=== PATIENT | female | born 1950 | race Caucasian/White ===

== ENCOUNTER 2020-02-07 10:17 | Outpatient (CLI) | payer MEDICARE, OTHER, SELFPAY ==
[2020-02-07 10:35] LABS: Hematocrit 45.8 % (37.0-47.0); Hemoglobin 15.2 g/dL (12.0-15.0); Mean Corpuscular HGB Conc 33.2 g/dl (32-36); Mean Corpuscular Volume 90.5 fl (80-100); Mean Platelet Volume 9.1 fl (7.4-10.4); Platelet Count Result 195 k/mm3 (150-375); Red Blood Count 5.06 M/mm3 (4.2-5.4); Red Cell Distribution Width 12.1 % (11.5-14.5)
[2020-02-07 10:47] LABS: Cholesterol 200 mg/dL (0-200); HDL Direct 38 mg/dL; Triglycerides 183 mg/dL (<150)
[2020-02-07 10:48] LABS: Alanine Aminotransferase 30 U/L (4-35); Albumin Level 4.3 g/dL (3.5-5.1); Alkaline Phosphatase 97 U/L (38-126); Aspartate Amino Transferase 29 U/L (14-36); Bilirubin,Total 0.7 mg/dL (0.2-1.3); Blood Urea Nitrogen 14 mg/dL (7-17); Calcium 9.3 mg/dL (8.4-10.2); Carbon Dioxide 27 mmol/L (22-30); Chloride 106 mmol/L (98-107); Estimated Glomerular Filt Rate > 60; Glucose 127 mg/dL (65-105); Magnesium 1.9 mg/dL (1.6-2.3); Sodium 139 mmol/L (137-145)
[2020-02-07 10:58] LABS: LDL Cholesterol Direct 128 mg/dL
[2020-02-07 12:09] LABS: Folic Acid > 20.0 ng/mL (2.76->20)
== END 2020-02-07 10:18 | disposition home or self-care (01) ==
PROVIDERS: PCP Internal Medicine; Visit Provider Internal Medicine
DX: R53.83 Other fatigue (principal); E78.00 Pure hypercholesterolemia, unspecified; I10 Essential (primary) hypertension
CPT/HCPCS: 36415; 80053; 80061; 82607; 82746; 83735; 84443; 85027

== ENCOUNTER 2020-09-02 07:55 | Outpatient (CLI) | payer MEDICARE, OTHER, SELFPAY ==
--- NOTE | ~2020-09-02 | MM_ITS ---
EXAMINATION: MM screening angela BI w nay HISTORY: Screening mammogram TECHNIQUE: Craniocaudal and mediolateral oblique 3-D tomosynthesis images were obtained and synthetic 2-D images were generated. CAD analysis was submitted and interpreted. COMPARISON: 08/24/2019, 07/18/2018, 07/14/2017 bilateral digital screening mammogram examinations BREAST PARENCHYMAL COMPOSITION: There are scattered areas of fibroglandular density. FINDINGS: There are bilateral scattered benign calcifications. There is a new 3 mm circumscribed opacity in the posterior lower outer left breast since 08/24/2019 ( craniocaudal Tomosynthesis image ). Diagnostic left mammogram is recommended, with ultrasound co rrelation. Otherwise there is no evidence of suspicious mass, calcification, or architectural distortion to sugg est malignancy in either breast. There has been no other suspicious interval change. IMPRESSION: 1. New 3 mm opacity in posterior lower outer left breast 2. Diagnostic left mammogram and left breast ultrasound examination are recommended. BI-RADS Category 0: Incomplete: Needs additional imaging evaluation. Reviewed, dictated and finalized at location A. ON SAWYER IMPRESSION: 1. New 3 mm opacity in posterior lower outer left breast 2. Diagnostic left mammogram and left breast ultrasound examination are recomme nded. BI-RADS Category 0: Incomplete: Needs additional imaging evaluation.
== END 2020-09-02 07:56 | disposition home or self-care (01) ==
PROVIDERS: PCP Internal Medicine; Visit Provider Internal Medicine
DX: Z12.31 Encounter for screening mammogram for malignant neoplasm of breast (principal); R92.8 Other abnormal and inconclusive findings on diagnostic imaging of breast
CPT/HCPCS: 77063; 77067

== ENCOUNTER 2020-09-30 13:46 | Outpatient (CLI) | payer MEDICARE, OTHER, SELFPAY ==
--- NOTE | ~2020-09-30 | MMUS_ITS ---
EXAMINATION: MM diagnostic mammo unilat LT, US breast LT limited HISTORY: Follow-up left breast asymmetry TECHNIQUE: Additional 3-D tomosynthesis images of the left breast were performed and synthetic 2-D im ages were generated. CAD analysis was submitted and interpreted. High resolution Limited left breast ultrasound was performed. COMPARISON: Comparison to multiple prior studies sequentially, with oldest reviewed study dated 06/25. BREAST PARENCHYMAL COMPOSITION: Breast composed of scattered areas of fibroglandular density FINDINGS: MAMMOGRAPHIC FINDINGS: . There are no suspicious masses, calcifications or architectural distortion in the left breast to kahn ggest malignancy. The focal asymmetry seen on prior examination compresses with spot ULTRASOUND: Limited left breast ultrasound is normal without focal solid or cystic mass. IMPRESSION: 1. No mammographic or sonographic evidence for malignancy in the left breast. 2. Routine yearly screening mammogram and regular clinical breast examination are recommended. BI-RADS Category 2: Benign finding(s). Reviewed, dictated and finalized at location A. D CANE SCALE CLERK IMPRESSION: 1. No mammographic or sonographic evidence for malignancy in the left breast. 2. Routine yearly screening mammogram and regular clinical breast examination a re recommended. BI-RADS Category 2: Benign finding(s).
== END 2020-09-30 13:47 | disposition home or self-care (01) ==
PROVIDERS: PCP Internal Medicine; Visit Provider Internal Medicine
DX: R92.8 Other abnormal and inconclusive findings on diagnostic imaging of breast (principal)
CPT/HCPCS: 76642; 77065

== ENCOUNTER 2020-11-21 09:19 | Outpatient (CLI) | payer MEDICARE, OTHER, SELFPAY ==
[2020-11-21 09:49] LABS: Basophils Percent Auto 0.4 % (0.2-1.2); Eosinophils Percent Auto 0.6 % (0-4.4); Hematocrit 46.8 % (37.0-47.0); Hemoglobin 15.7 g/dL (12.0-15.0); Immature Granulocyte Absolute 0.03 K/mm3 (0.00-0.031); Immature Granulocyte Percent A 0.4 % (0-0.5); Lymphocytes Absolute Auto 2.22 K/mm3 (0.9-3.2); Lymphocytes Percent Auto 31.4 % (18.3-44.2); Mean Corpuscular HGB Conc 33.5 g/dl (32-36); Mean Corpuscular Hemoglobin 29.3 pg (26-34); Mean Corpuscular Volume 87.3 fl (80-100); Monocytes Absolute Auto 0.4 K/mm3 (0.1-0.6); Monocytes Percent Auto 5.4 % (2.6-8.5); Neutrophils Absolute Auto 4.4 K/mm3 (1.3-6.7); Neutrophils Percent Auto 61.8 % (45.5-73.1); Platelet Count Result 193 k/mm3 (150-375); Red Blood Count 5.36 M/mm3 (4.2-5.4); Red Cell Distribution Width 12.3 % (11.5-14.5); White Blood Count 7.1 K/mm3 (4.5-10.0)
[2020-11-21 09:56] LABS: Alanine Aminotransferase 55 U/L (4-35); Albumin Level 4.2 g/dL (3.5-5.1); Alkaline Phosphatase 90 U/L (38-126); Anion Gap 7 mmol/L (8-16); Aspartate Amino Transferase 49 U/L (14-36); Bilirubin,Total 0.8 mg/dL (0.2-1.3); Blood Urea Nitrogen 16 mg/dL (7-17); Calcium 9.7 mg/dL (8.4-10.2); Carbon Dioxide 29 mmol/L (22-30); Chloride 104 mmol/L (98-107); Cholesterol 183 mg/dL (0-200); Estimated Glomerular Filt Rate > 60; Glucose 169 mg/dL (65-105); HDL Direct 40 mg/dL; Sodium 140 mmol/L (137-145); Triglycerides 195 mg/dL (<150)
[2020-11-21 10:07] LABS: Hemoglobin A1C 6.3 % (<5.7); LDL Cholesterol Direct 115 mg/dL
[2020-11-21 10:45] LABS: Vitamin D 25 Hydroxy 31.7 ng/mL
[2020-11-21 11:03] LABS: Folic Acid > 20.0 ng/mL (2.76->20)
== END 2020-11-21 09:20 | disposition home or self-care (01) ==
PROVIDERS: PCP Internal Medicine; Visit Provider Internal Medicine
DX: R53.83 Other fatigue (principal); I10 Essential (primary) hypertension; E53.8 Deficiency of other specified B group vitamins; E78.5 Hyperlipidemia, unspecified; E55.9 Vitamin D deficiency, unspecified; R73.9 Hyperglycemia, unspecified
CPT/HCPCS: 36415; 80053; 80061; 82306; 82607; 82746; 83036; 84443; 85025

== ENCOUNTER 2020-11-25 11:07 | Outpatient (NON) | payer MEDICARE, OTHER, SELFPAY ==
[2020-11-28 09:12] LABS: Metanephrine, Total Urine 462 mcg/24 h (224-832); Metanephrine, Urine 103 mcg/24 h (90-315); Normetanephrine, Urine 359 mcg/24 h (122-676)
== END 2020-11-25 11:08 ==
PROVIDERS: PCP Internal Medicine; Visit Provider Internal Medicine
DX: I10 Essential (primary) hypertension (principal)
CPT/HCPCS: 83835

== ENCOUNTER 2021-01-14 11:25 | Outpatient (CLI) | payer MEDICARE, OTHER, SELFPAY | END 2021-01-14 11:26 | disposition home or self-care (01) | LOC: ANHCOVIDVC 11:25 | PROVIDERS: PCP Internal Medicine | DX: Z23 Encounter for immunization (principal) | CPT/HCPCS: 0001A; 91300 ==

== ENCOUNTER 2021-02-04 11:28 | Outpatient (CLI) | payer MEDICARE, OTHER, SELFPAY | END 2021-02-04 11:29 | disposition home or self-care (01) | LOC: ANHCOVIDVC 11:28 | PROVIDERS: PCP Internal Medicine | DX: Z23 Encounter for immunization (principal) | CPT/HCPCS: 0002A; 91300 ==

== ENCOUNTER 2021-05-16 09:50 | Outpatient (CLI) | payer MEDICARE, OTHER, SELFPAY ==
[2021-05-16 10:53] LABS: Basophils Absolute Auto 0.1 K/mm3 (0.0-0.1); Basophils Percent Auto 0.6 % (0.2-1.2); Eosinophils Absolute Auto 0.1 K/mm3 (0-0.3); Eosinophils Percent Auto 0.9 % (0-4.4); Hematocrit 48.3 % (37.0-47.0); Hemoglobin 15.6 g/dL (12.0-15.0); Immature Granulocyte Absolute 0.04 K/mm3 (0.00-0.031); Immature Granulocyte Percent A 0.5 % (0-0.5); Lymphocytes Percent Auto 30.9 % (18.3-44.2); Mean Corpuscular HGB Conc 32.3 g/dl (32-36); Mean Corpuscular Hemoglobin 29.2 pg (26-34); Mean Corpuscular Volume 90.3 fl (80-100); Mean Platelet Volume 8.9 fl (7.4-10.4); Monocytes Absolute Auto 0.4 K/mm3 (0.1-0.6); Neutrophils Absolute Auto 4.8 K/mm3 (1.3-6.7); Neutrophils Percent Auto 62.1 % (45.5-73.1); Platelet Count Result 207 k/mm3 (150-375); Red Blood Count 5.35 M/mm3 (4.2-5.4); Red Cell Distribution Width 12.2 % (11.5-14.5); White Blood Count 7.8 K/mm3 (4.5-10.0)
[2021-05-16 11:11] LABS: Alanine Aminotransferase 30 U/L (4-35); Albumin Level 4.2 g/dL (3.5-5.1); Alkaline Phosphatase 106 U/L (38-126); Anion Gap 7 mmol/L (8-16); Aspartate Amino Transferase 32 U/L (14-36); Bilirubin,Total 0.7 mg/dL (0.2-1.3); Blood Urea Nitrogen 15 mg/dL (7-17); Calcium 10.1 mg/dL (8.4-10.2); Carbon Dioxide 27 mmol/L (22-30); Chloride 106 mmol/L (98-107); Cholesterol 202 mg/dL (0-200); Estimated Glomerular Filt Rate > 60; Glucose 147 mg/dL (65-110); HDL Direct 37 mg/dL; Potassium 4.2 mmol/L (3.4-5.0); Sodium 140 mmol/L (137-145); Triglycerides 232 mg/dL (<150)
[2021-05-16 11:22] LABS: LDL Cholesterol Direct 105 mg/dL
[2021-05-16 11:46] LABS: Vitamin D 25 Hydroxy 51.1 ng/mL
[2021-05-16 12:19] LABS: Folic Acid 9.8 ng/mL (2.76->20)
[2021-05-16 12:23] LABS: Hemoglobin A1C 6.6 % (<5.7)
== END 2021-05-16 09:51 | disposition home or self-care (01) ==
PROVIDERS: PCP Internal Medicine; Visit Provider Internal Medicine
DX: R73.9 Hyperglycemia, unspecified (principal); E78.5 Hyperlipidemia, unspecified; E55.9 Vitamin D deficiency, unspecified; E53.8 Deficiency of other specified B group vitamins; R53.83 Other fatigue
CPT/HCPCS: 36415; 80053; 80061; 82306; 82607; 82746; 83036; 84443; 85025

== ENCOUNTER 2021-09-19 15:05 | Outpatient (CLI) | payer MEDICARE, OTHER, SELFPAY ==
--- NOTE | ~2021-09-19 | US_ITS ---
EXAMINATION: US thyroid EXAM DATE: 09/19/2021 15:34 INDICATION: E04.1 - Nontoxic single thyroid nodule. TECHNIQUE: Multiple grayscale and Doppler images of the thyroid were obtained (by a technologist who performed the scan) and subsequently reviewed. Individual nodules and recommendations may be reporte d in accordance with TI-RADS system as designated by the 2017 ACR White Paper TI-RADS committee. The re is no prior study for comparison. FINDINGS: The right thyroid lobe measures 4.3 x 1.8 x 1.6 cm, the left measuring 4.1 x 1.4 x 1.2 cm. Mildly het erogeneous thyroid parenchyma with several small right thyroid lobe nodules. Largest solid nodule is in the right thyroid lobe measuring 1.1 x 1.1 x 0.9 cm , solid (2 points), hy poechoic (2 points), wider than tall, smooth well defined margin, without echogenic foci, category TR 4 for this nodule. IMPRESSION: Mildly enlarged right thyroid lobe with several nodules; recommend one-year follow-up ult rasound. Reviewed, dictated and finalized at location B. CITING FREIGHT AGENT IMPRESSION: Mildly enlarged right thyroid lobe with several nodules; recommend one-year follow-up ultrasound.
== END 2021-09-19 15:06 | disposition home or self-care (01) ==
LOC: ANHIMG 15:10
PROVIDERS: PCP Internal Medicine; Visit Provider Internal Medicine
DX: E04.1 Nontoxic single thyroid nodule (principal)
CPT/HCPCS: 76536

== ENCOUNTER 2021-09-29 08:33 | Outpatient (CLI) | payer MEDICARE, OTHER, SELFPAY ==
--- NOTE | ~2021-09-29 | MM_ITS ---
EXAMINATION: MM screening angela BI w nay HISTORY: Screening TECHNIQUE: Craniocaudal and mediolateral oblique 3-D tomosynthesis images were obtained and synthetic 2-D images were generated. CAD analysis was submitted and interpreted. COMPARISON: Comparison to multiple prior studies sequentially, with oldest reviewed study dated 07/03. BREAST PARENCHYMAL COMPOSITION: Breast composed of scattered areas of fibroglandular density FINDINGS: There is no evidence of suspicious mass, calcification, or architectural distortion to sugg est malignancy in either breast. There has been no suspicious interval change. IMPRESSION: 1. No mammographic evidence of malignancy. 2. Recommend routine screening mammography in one year. BI-RADS Category 1: Negative Reviewed, dictated and finalized at location A. GER PARTY
== END 2021-09-29 08:34 | disposition home or self-care (01) ==
LOC: ANHIMG 08:37
PROVIDERS: PCP Internal Medicine; Visit Provider Internal Medicine
DX: Z12.31 Encounter for screening mammogram for malignant neoplasm of breast (principal)
CPT/HCPCS: 77063; 77067

== ENCOUNTER 2021-12-04 11:12 | Outpatient (CLI) | payer MEDICARE, OTHER, SELFPAY ==
[2021-12-04 11:50] LABS: Basophils Percent Auto 0.6 % (0.2-1.2); Eosinophils Percent Auto 0.6 % (0-4.4); Hematocrit 43.7 % (37.0-47.0); Hemoglobin 14.1 g/dL (12.0-15.0); Immature Granulocyte Absolute 0.02 K/mm3 (0.00-0.031); Immature Granulocyte Percent A 0.3 % (0-0.5); Lymphocytes Absolute Auto 2.31 K/mm3 (0.9-3.2); Lymphocytes Percent Auto 37.1 % (18.3-44.2); Mean Corpuscular HGB Conc 32.3 g/dl (32-36); Mean Corpuscular Hemoglobin 28.8 pg (26-34); Mean Corpuscular Volume 89.4 fl (80-100); Mean Platelet Volume 9.4 fl (7.4-10.4); Monocytes Absolute Auto 0.4 K/mm3 (0.1-0.6); Monocytes Percent Auto 5.6 % (2.6-8.5); Neutrophils Absolute Auto 3.5 K/mm3 (1.3-6.7); Neutrophils Percent Auto 55.8 % (45.5-73.1); Platelet Count Result 161 k/mm3 (150-375); Red Blood Count 4.89 M/mm3 (4.2-5.4); Red Cell Distribution Width 12.8 % (11.5-14.5); White Blood Count 6.2 K/mm3 (4.5-10.0)
[2021-12-04 12:15] LABS: Alanine Aminotransferase 30 U/L (4-35); Albumin Level 4.1 g/dL (3.5-5.1); Alkaline Phosphatase 108 U/L (38-126); Anion Gap 6 mmol/L (8-16); Aspartate Amino Transferase 29 U/L (14-36); Bilirubin,Total 0.7 mg/dL (0.2-1.3); Blood Urea Nitrogen 12 mg/dL (7-17); Calcium 9.3 mg/dL (8.4-10.2); Carbon Dioxide 29 mmol/L (22-30); Chloride 105 mmol/L (98-107); Cholesterol 196 mg/dL (0-200); Estimated Glomerular Filt Rate > 60; Glucose 139 mg/dL (65-110); HDL Direct 35 mg/dL; Lactate Dehydrogenase 456 U/L (313-618); Potassium 4.4 mmol/L (3.4-5.0); Sodium 140 mmol/L (137-145); Triglycerides 245 mg/dL (<150)
[2021-12-04 12:25] LABS: LDL Cholesterol Direct 124 mg/dL
[2021-12-04 12:28] LABS: Hemoglobin A1C 6.5 % (<5.7)
[2021-12-04 13:26] LABS: Folic Acid > 20.0 ng/mL (2.76->20)
== END 2021-12-04 11:13 | disposition home or self-care (01) ==
PROVIDERS: PCP Internal Medicine; Visit Provider Internal Medicine
DX: D75.1 Secondary polycythemia (principal); R73.9 Hyperglycemia, unspecified; E78.5 Hyperlipidemia, unspecified; E53.8 Deficiency of other specified B group vitamins
CPT/HCPCS: 36415; 80053; 80061; 82607; 82746; 83036; 83615; 85025

== ENCOUNTER → 2022-04-17 02:19 | Outpatient (CLI) | payer MEDICARE, OTHER, SELFPAY ==
[2022-04-17 12:37] LABS: Influenza A QL RT-PCR Negative (Negative); Influenza B QL RT-PCR Negative (Negative); SARS-CoV-2 RNA PCR Negative
== END ==
PROVIDERS: PCP Internal Medicine; Visit Provider Internal Medicine
DX: R68.89 Other general symptoms and signs (principal); Z20.822 Contact with and (suspected) exposure to COVID-19
CPT/HCPCS: 87502; C9803; U0003; U0005

== ENCOUNTER 2022-11-18 12:31 | Outpatient (CLI) | payer MEDICARE, OTHER, SELFPAY ==
--- NOTE | ~2022-11-18 | MM_ITS ---
EXAMINATION: MM screening angela BI w nay HISTORY: Screening mammogram TECHNIQUE: Craniocaudal and mediolateral oblique 3-D tomosynthesis images were obtained and synthetic 2-D images were generated. CAD analysis was submitted and interpreted. COMPARISON: 09/29/2021 bilateral screening mammogram 09/30/2020 diagnostic left mammogram and limited left breast ultrasound 09/02/2020, 08/24/2019 bilateral screening mammogram examinations BREAST PARENCHYMAL COMPOSITION: There are scattered areas of fibroglandular density. FINDINGS: Scattered bilateral benign calcifications. Stable circumscribed low-density approximately 4 .7 mm opacity in the outer mid to lower right breast anteriorly. There is no evidence of suspicious m ass, calcification, or architectural distortion to suggest malignancy in either breast. There has bee n no suspicious interval change. IMPRESSION: 1. No mammographic evidence of malignancy. 2. Recommend routine screening mammography in one year. BI-RADS Category 2: Benign finding(s). Reviewed, dictated and finalized at location A. S INSPECTOR
== END 2022-11-18 12:32 | disposition home or self-care (01) ==
PROVIDERS: PCP Internal Medicine; Visit Provider Internal Medicine
DX: Z12.31 Encounter for screening mammogram for malignant neoplasm of breast (principal)
CPT/HCPCS: 77063; 77067

== ENCOUNTER 2022-12-18 11:27 | Outpatient (CLI) | payer MEDICARE, OTHER, SELFPAY ==
[2022-12-18 11:49] LABS: Basophils Absolute Auto 0.1 K/mm3 (0.0-0.1); Basophils Percent Auto 0.6 % (0.2-1.2); Eosinophils Absolute Auto 0.1 K/mm3 (0-0.3); Eosinophils Percent Auto 0.6 % (0-4.4); Hematocrit 46.2 % (37.0-47.0); Hemoglobin 15.2 g/dL (12.0-15.0); Immature Granulocyte Absolute 0.03 K/mm3 (0.00-0.031); Immature Granulocyte Percent A 0.4 % (0-0.5); Lymphocytes Absolute Auto 2.75 K/mm3 (0.9-3.2); Lymphocytes Percent Auto 32.7 % (18.3-44.2); Mean Corpuscular HGB Conc 32.9 g/dl (32-36); Mean Corpuscular Hemoglobin 29.2 pg (26-34); Mean Corpuscular Volume 88.7 fl (80-100); Monocytes Absolute Auto 0.4 K/mm3 (0.1-0.6); Monocytes Percent Auto 5.1 % (2.6-8.5); Neutrophils Absolute Auto 5.1 K/mm3 (1.3-6.7); Neutrophils Percent Auto 60.6 % (45.5-73.1); Platelet Count Result 211 k/mm3 (150-375); Red Blood Count 5.21 M/mm3 (4.2-5.4); Red Cell Distribution Width 12.7 % (11.5-14.5); White Blood Count 8.4 K/mm3 (4.5-10.0)
[2022-12-18 12:03] LABS: Alanine Aminotransferase 35 U/L (6-35); Albumin Level 4.5 g/dL (3.5-5.1); Alkaline Phosphatase 105 U/L (38-126); Anion Gap 9 mmol/L (8-16); Aspartate Amino Transferase 33 U/L (14-36); Bilirubin,Total 0.8 mg/dL (0.2-1.3); Blood Urea Nitrogen 14 mg/dL (7-17); Calcium 9.7 mg/dL (8.4-10.2); Carbon Dioxide 27 mmol/L (22-30); Chloride 104 mmol/L (98-107); Cholesterol 199 mg/dL (0-200); Estimated Glomerular Filt Rate > 60; Glucose 168 mg/dL (65-110); HDL Direct 39 mg/dL; Potassium 4.7 mmol/L (3.4-5.0); Sodium 140 mmol/L (137-145); Triglycerides 243 mg/dL (<150)
[2022-12-18 12:13] LABS: LDL Cholesterol Direct 118 mg/dL
[2022-12-18 12:28] LABS: Vitamin D 25 Hydroxy 56.6 ng/mL
[2022-12-18 13:13] LABS: Folic Acid > 20.0 ng/mL (2.76->20)
== END 2022-12-18 11:28 | disposition home or self-care (01) ==
PROVIDERS: PCP Internal Medicine; Visit Provider Internal Medicine
DX: E78.5 Hyperlipidemia, unspecified (principal); E53.8 Deficiency of other specified B group vitamins; R53.83 Other fatigue; D75.1 Secondary polycythemia; E55.9 Vitamin D deficiency, unspecified; R73.9 Hyperglycemia, unspecified
CPT/HCPCS: 36415; 80053; 80061; 82306; 82607; 82746; 84443; 85025

== ENCOUNTER 2023-01-28 01:00 | Day surgery (SDC) | payer MEDICARE, OTHER, SELFPAY ==
[2023-01-18 10:03] VITALS: BMI 39.6
--- NOTE | 2023-01-18 10:16 | PC.NURSE ---
Report to the Outpatient Waiting Room, entrance under the green pavilion located off [facility], at time _6:00AM on date __01/28/23 . Planned Procedure Time: __7:30AM . Time changes happen often and if your time is changed the preop area will call you the afternoon before. - You and your visitor will be asked to self-screen and do not enter if you have any COVID symptoms. - A mask is optional within the hospital at this time. Patients may have clear liquids (water, carbonated beverages, clear teas, apple juice) until 3 hours prior to surgery with a maximum of 20 ounces. - No food from midnight until time of surgery Take the following medications with a SIP of water the morning of surgery: ____FELODIPINE DO NOT STOP ANY OF YOUR OTHER PRESCRIPTION MEDICATIONS PRIOR TO SURGERY ?EXCEPT THE FOLLOWING Medications to discontinue per physician ___HOLD ALL VITAMIN/SUPPLEMENT 3 DAYS PRE-OP Date to take last dose____01/24/23 Please no make-up, nail mexican, hairspray, perfume, deodorant, or body powder the day of surgery. No jewelry (including any body piercings) or valuables the day of surgery, leave them at home. Please take a shower or bath the night before, or the morning of, surgery with an antibacterial soap. Wear comfortable, loose fitting clothing. Children are encouraged to wear pajamas. - Jewelry must be removed prior to entering the operating room. Rings and piercings that are not removed may be cut off. - The hospital will not accept responsibility for valuables. - Please leave all valuables, including medications, at home the day of surgery. If you are going home after surgery, a licensed auto driver must drive you home. - NO public transportation without another adult if you receive anesthesia. - We recommend that an adult stay with you for 24 hours following discharge. - We also recommend that you do not drive, make important decision, drink alcoholic beverages, or take any drugs that were not prescribed by your health care provider for at least 24 hours after your discharge time. Follow any additional instructions given to you from your surgeon. If you or anyone in your household have experienced Covid symptoms in the past week, please notify your surgeon or the nurse liaison at the phone number below for possible testing. Telephone instructions given to __PATIENT and asked if any additional questions and then verbalized understanding. Patient advised to call surgeon office or pre surgery nurse liaison [phone] if any additional questions.
--- NOTE | 2023-01-27 13:24 | P.PNAN_ITS ---
Anes - Initial Pre Proc Eval Procedure: Operation Date: 01/28/23 07:30 Proposed Procedures p Excisional Biopsy Right Posterior Shoulder Mass - Meli Onofre MD Date/Time: 01/27/23 13:24 Surgeon: Meli Onofre MD Pre Op Diagnosis: right posterior shoulder mass Patient Data Age: 72 Gender: F Height: 1.47 m Weight: 86 kg Allergies Allergy/AdvReac Type Severity Reaction Status Date / Time Sulfa (Sulfonamide Allergy Intermediate Hives Verified 01/28/23 06:23 Antibiotics) Home Medications Medication Instructions Recorded Confirmed Type carboxymethyl 0.5 %-glycerin 1 1 drop ophthalmic (eye) Q2-4H PRN 08/28/19 01/28/23 History %-polysorb 80 0.5 %-PF eye Dry Eye(S) dropperette (Refresh Optive Sina-3 (PF)) cholecalciferol (vitamin D3) 125 125 mcg PO DAILY 11/29/20 01/28/23 History mcg (5,000 unit) capsule bisoprolol 10 1 tablet PO QAM 01/18/23 01/28/23 History mg-hydrochlorothiazide 6.25 mg tablet cyanocobalamin (vitamin B-12) 500 500 mcg PO DAILY 01/18/23 01/28/23 History mcg tablet,extended release felodipine 5 mg tablet,extended 5 mg PO QAM 01/18/23 01/28/23 History release 24 hr multivitamin with iron (Daily 1 tablet PO DAILY 01/18/23 01/28/23 History Multiple Vitamins with Iron tablet) telmisartan 80 mg tablet 80 mg PO QAM 01/18/23 01/28/23 History Patient hx anesthesia problems: none Family hx anesthesia problems: none Results Review: All pre-operative results and documents have been reviewed as part of the pre- operative evaluation. FOR[facility]LY [facility] Past Medical History Medical History (Updated 01/28/23 @ 06:28 by Foster Alejandro DO) Hyperlipidemia Hypertension Family History Family History Sibling Hypertension Patient's brother is Father Acute myocardial infarction, Onset Age: 67 Patient's father is Social History Social History Smoking status: Never smoker Second hand tobacco smoke exposure: No Alcohol intake: current Substance use: never Lack of Transportation: No Lack of Food: Never True Current Housing: I Have Housing Concerned About Future Housing: No Difficulty Paying Gas/Electric Bills: No Difficulty Paying for Meds: No Currently Unemployed: No Education: High School Diploma/GED Difficulty w/ Childcare or Family Care: No Living arrangements: alone Spiritual care concerns: No Anes - Eval Final PreProcedure Day of Procedure 01/27/23 13:24 Patient weight: obese Heart: regular rate and rhythm Lungs: clear to auscultation Airway: Mallampati scale class II Neurological: alert and oriented Last oral intake: >/= 8 hours ASA classification: III Emergent: no Anesthetic plan: proceed Anesthesia type and monitoring: general GIVS and standard monitoring Results Review: All pre-operative results and documents have been reviewed as part of the pre- operative evaluation. Informed Consent: The patient's anesthetic plan and its attendant risks and benefits were discussed with the patient/family/POA. Questions were solicited and answers provided to the satisfaction of the patient/family/POA.
[2023-01-28 06:16] VITALS: BP 173/88; PULSE 108; RESP 16; TEMP 36.2; O2SAT 97
[2023-01-28] MEDS: LACTATED RINGERS 1,000 ML 30 ML IV CONT (06:38)
--- NOTE | 2023-01-28 06:54 | ECG_ITS ---
Measurements Intervals [place] Rate: 85 P: MD: 0 QRS: 32 QRSD: 80 T: 26 QT: 373 QTc: 445 Interpretive Statements ATRIAL FIBRILLATION ABNORMAL RHYTHM ECG COMPARED TO ECG 02/22/2019 11:00:37 ATRIAL FIBRILLATION NOW PRESENT Electronically Signed On 01-28-2023 8:59:56 CDT by Leeroy Gomez M.D.
--- NOTE | 2023-01-28 07:42 | SUR.PREOP ---
dr pacheco notified irregular heart rate,connected to monitor,with irregular heart rate 80,s ekg obtained with artial fibrillation.case cancelled due to new onset atria;fibrillation.to followup with medical billing specialist.
--- NOTE | 2023-01-28 08:03 | SUR.PREOP ---
ok to discharge today per Dr Alejandro.
--- NOTE | 2023-01-28 08:47 | SUR.PREOP ---
Patient aware of appointment with Dr Bain at 1530 on 01/29/23
== END 2023-01-28 08:15 | disposition home or self-care (01) ==
PROVIDERS: PCP Internal Medicine; Visit Provider Surgery
DX: R22.31 Localized swelling, mass and lump, right upper limb (principal); I48.91 Unspecified atrial fibrillation; Z53.09 Procedure and treatment not carried out because of other contraindication
CPT/HCPCS: 93005; 99214; G0463; J7120

== ENCOUNTER 2023-02-11 01:26 | Day surgery (SDC) | payer MEDICARE, OTHER, SELFPAY ==
[2023-01-28 14:23] VITALS: BMI 38.5
--- NOTE | 2023-02-10 15:47 | PM.HPGS ---
History of Present Illness History of Present Illness Consent: Risks, benefits, and alternatives have been discussed and questions answered. Patient agrees to proceed with procedure. Chief complaint: Pers hx of colon polyps Narrative: Smitha Schmidt is a 73 year old female Referred for colon cancer Screening. She had a tubular adenoma removed at the time of her last colonoscopy 7 years ago. Review of Systems Review of Systems: All systems reviewed & are unremarkable except as noted in HPI and below PMFSH Past Medical History Medical History Hyperlipidemia Hypertension Family History Family History Sibling Hypertension Patient's brother is Father Acute myocardial infarction, Onset Age: 67 Patient's father is Social History Social History Smoking status: Never smoker Second hand tobacco smoke exposure: No Alcohol intake: current Drinks per week: 1 Substance use: never Substance use type: does not use Lack of Transportation: No Lack of Food: Never True Current Housing: I Have Housing Concerned About Future Housing: No Difficulty Paying Gas/Electric Bills: No Difficulty Paying for Meds: No Currently Unemployed: No Education: High School Diploma/GED Difficulty w/ Childcare or Family Care: No Living arrangements: alone Meds Home Medications and Allergies Home Medications Medication Instructions Recorded Confirmed Type carboxymethyl 0.5 %-glycerin 1 1 drop ophthalmic (eye) Q2-4H PRN 08/28/19 02/11/23 History %-polysorb 80 0.5 %-PF eye Dry Eye(S) dropperette (Refresh Optive Sina-3 (PF)) cholecalciferol (vitamin D3) 125 125 mcg PO DAILY 11/29/20 02/11/23 History mcg (5,000 unit) capsule cyanocobalamin (vitamin B-12) 500 500 mcg PO DAILY 01/18/23 02/11/23 History mcg tablet,extended release multivitamin with iron (Daily 1 tablet PO DAILY 01/18/23 02/11/23 History Multiple Vitamins with Iron tablet) telmisartan 80 mg tablet 80 mg PO QAM 01/18/23 02/11/23 History apixaban 5 mg tablet (Eliquis) 5 mg PO BID #60 tabs 01/29/23 02/11/23 Rx bisoprolol 10 1 tablet PO QAM #90 tabs 02/09/23 02/11/23 Rx mg-hydrochlorothiazide 6.25 mg tablet felodipine 5 mg tablet,extended 5 mg PO QAM #90 tabs 02/09/23 02/11/23 Rx release 24 hr Allergies Allergy/AdvReac Type Severity Reaction Status Date / Time Sulfa (Sulfonamide Allergy Intermediate Hives Verified 02/11/23 10:02 Antibiotics) Exam Const: General: alert Orientation/consciousness: patient oriented x3 Resp: Auscultation: clear to auscultation bilaterally Cardio: Rhythm: regular rhythm GI: GI Palp: Yes Soft to palpation and No Tenderness to palpation present (GI) Neuro: General: patient oriented x3 Assessment and Plan Assessment and plan (1) Colon cancer screening: Code(s): Z12.11 - Encounter for screening for malignant neoplasm of colon Status: Acute Assessment and Plan: Colonoscopy with possible biopsy or polypectomy or cautery or injection of substances.
[2023-02-11 10:05] VITALS: BP 150/95; PULSE 98; RESP 20; TEMP 36.1; O2SAT 98; BMI 36.1
[2023-02-11] MEDS: LACTATED RINGERS 1,000 ML 150 ML IV CONT (10:08)
--- NOTE | 2023-02-11 10:40 | WPDANESEPPF ---
Anes - Initial Pre Proc Eval Procedure: Operation Date: 02/11/23 11:15 Proposed Procedures p Colonoscopy - Aquiles Ramires MD Date/Time: 02/11/23 10:40 Surgeon: Aquiles Ramires MD Pre Op Diagnosis: Pers hx of colon polyps Patient Data Age: 73 Gender: F Height: 1.5 m Weight: 81.1 kg Last Vital Signs Temp 97.0 F L 02/11/23 10:05 Pulse 98 02/11/23 10:05 Resp 20 02/11/23 10:05 BP 150/95 H 02/11/23 10:05 Pulse Ox 98 02/11/23 10:05 O2 Del Method Room Air 02/11/23 10:05 Allergies Allergy/AdvReac Type Severity Reaction Status Date / Time Sulfa (Sulfonamide Allergy Intermediate Hives Verified 02/11/23 10:02 Antibiotics) Home Medications Medication Instructions Recorded Confirmed Type carboxymethyl 0.5 %-glycerin 1 1 drop ophthalmic (eye) Q2-4H PRN 08/28/19 02/11/23 History %-polysorb 80 0.5 %-PF eye Dry Eye(S) dropperette (Refresh Optive Sina-3 (PF)) cholecalciferol (vitamin D3) 125 125 mcg PO DAILY 11/29/20 02/11/23 History mcg (5,000 unit) capsule cyanocobalamin (vitamin B-12) 500 500 mcg PO DAILY 01/18/23 02/11/23 History mcg tablet,extended release multivitamin with iron (Daily 1 tablet PO DAILY 01/18/23 02/11/23 History Multiple Vitamins with Iron tablet) telmisartan 80 mg tablet 80 mg PO QAM 01/18/23 02/11/23 History apixaban 5 mg tablet (Eliquis) 5 mg PO BID #60 tabs 01/29/23 02/11/23 Rx bisoprolol 10 1 tablet PO QAM #90 tabs 02/09/23 02/11/23 Rx mg-hydrochlorothiazide 6.25 mg tablet felodipine 5 mg tablet,extended 5 mg PO QAM #90 tabs 02/09/23 02/11/23 Rx release 24 hr Patient hx anesthesia problems: none Family hx anesthesia problems: none Results Review: All pre-operative results and documents have been reviewed as part of the pre-operative evaluation. PMFSH Past Medical History Medical History Hyperlipidemia Hypertension Family History Family History Sibling Hypertension Patient's brother is Father Acute myocardial infarction, Onset Age: 67 Patient's father is Social History Social History Smoking status: Never smoker Second hand tobacco smoke exposure: No Alcohol intake: current Drinks per week: 1 Substance use: never Substance use type: does not use Lack of Transportation: No Lack of Food: Never True Current Housing: I Have Housing Concerned About Future Housing: No Difficulty Paying Gas/Electric Bills: No Difficulty Paying for Meds: No Currently Unemployed: No Education: High School Diploma/GED Difficulty w/ Childcare or Family Care: No Living arrangements: alone Anes - Eval Final PreProcedure Day of Procedure 02/11/23 10:40 Patient weight: obese Heart: irregular rhythm Lungs: clear to auscultation Airway: Mallampati scale Neurological: alert and oriented Last oral intake: >/= 8 hours ASA classification: III Emergent: no Anesthetic plan: proceed Anesthesia type and monitoring: general GIVS and standard monitoring Results Review: All pre-operative results and documents have been reviewed as part of the pre-operative evaluation. Informed Consent: The patient's anesthetic plan and its attendant risks and benefits were discussed with the patient/family/POA. Questions were solicited and answers provided to the satisfaction of the patient/family/POA.
[2023-02-11 11:46] VITALS: BP 105/66; PULSE 67; RESP 22; O2SAT 97
[2023-02-11 11:56] VITALS: BP 133/77; PULSE 78; RESP 21; O2SAT 98
[2023-02-11 12:03] VITALS: BP 115/74; PULSE 71; RESP 19; O2SAT 99
== END 2023-02-11 12:27 | disposition home or self-care (01) ==
PROVIDERS: PCP Internal Medicine; Visit Provider Internal Medicine Gastroenterology
PROC: 0DJD8ZZ Inspection of Lower Intestinal Tract, Via Natural or Artificial Opening Endoscopic (ICD-10-PCS; CPT 45378; principal; 2023-02-11 11:15)
DX: Z12.11 Encounter for screening for malignant neoplasm of colon (principal); K64.8 Other hemorrhoids; Z86.010 Personal history of colon polyps; I10 Essential (primary) hypertension; E78.5 Hyperlipidemia, unspecified; Z79.01 Long term (current) use of anticoagulants; E66.9 Obesity, unspecified; Z68.36 Body mass index [BMI] 36.0-36.9, adult
CPT/HCPCS: G0105; J2704; J7120

== ENCOUNTER 2023-03-25 10:10 | Outpatient (CLI) | payer MEDICARE, OTHER, SELFPAY ==
[2023-03-25 12:38] LABS: Anion Gap 6 mmol/L (8-16); Blood Urea Nitrogen 14 mg/dL (7-17); Carbon Dioxide 27 mmol/L (22-30); Chloride 106 mmol/L (98-107); Estimated Glomerular Filt Rate > 60; Glucose 124 mg/dL (65-110); Potassium 4.2 mmol/L (3.4-5.0); Sodium 139 mmol/L (137-145)
== END 2023-03-25 10:11 | disposition home or self-care (01) ==
LOC: ANHSURGERY 10:17
PROVIDERS: Anesthesiology; PCP Internal Medicine; Visit Provider Surgery
DX: Z79.899 Other long term (current) drug therapy (principal); Z01.818 Encounter for other preprocedural examination
CPT/HCPCS: 36415; 80048

== ENCOUNTER 2023-03-31 02:15 | Day surgery (SDC) | payer MEDICARE, OTHER, SELFPAY ==
[2023-03-22 14:38] VITALS: BMI 36.4
--- NOTE | 2023-03-22 14:45 | PC.NURSE ---
PRE-OP INSTRUCTIONS, PLEASE READ CAREFULLY Report to the Outpatient Waiting Room, entrance under the green pavilion located off [facility], at time _1000_ on date _03/31/23_. Planned Procedure Time: _1200_. Time changes happen often and if your time is changed the preop area will call you the afternoon before. - You and your visitor will be asked to self-screen and do not enter if you have any COVID symptoms. - A mask is optional within the hospital at this time. Patients may have clear liquids (water, carbonated beverages, clear teas, apple juice) until 3 hours prior to surgery (0900 AM) with a maximum of 20 ounces. - No food from midnight until time of surgery Take the following medications with a SIP of water the morning of surgery: _EYE DROPS IF NEEDED_ DO NOT STOP ANY OF YOUR OTHER PRESCRIPTION MEDICATIONS PRIOR TO SURGERY ?EXCEPT THE FOLLOWING Medications to discontinue per DR. ARMSTRONG - _ELIQUIS 2 DAYS PRIOR TO SURGERY, Date to take last dose 03/28/23_ Medications to discontinue per ANESTHESIA - MULTIVITAMIN 3 DAYS PRIOR TO SURGERY, Date to take last dose 03/27/23_ Please no make-up, nail kenyan, hairspray, perfume, deodorant, or body powder the day of surgery. No jewelry (including any body piercings) or valuables the day of surgery, leave them at home. Please take a shower or bath the night before, or the morning of, surgery with an antibacterial soap. Wear comfortable, loose fitting clothing. - Jewelry must be removed prior to entering the operating room. Rings and piercings that are not removed may be cut off. - The hospital will not accept responsibility for valuables. - Please leave all valuables, including medications, at home the day of surgery. If you are going home after surgery, a licensed drivers' cash clerk must drive you home. - NO public transportation without another adult if you receive anesthesia. - We recommend that an adult stay with you for 24 hours following discharge. - We also recommend that you do not drive, make important decision, drink alcoholic beverages, or take any drugs that were not prescribed by your health care provider for at least 24 hours after your discharge time. Follow any additional instructions given to you from your surgeon. If you or anyone in your household have experienced Covid symptoms in the past week, please notify your surgeon or the nurse liaison at the phone number below for possible testing. Telephone instructions given to _PATIENT_and asked if any additional questions and then verbalized understanding. Patient advised to call surgeon office or pre surgery nurse liaison [phone] if any additional questions.
--- NOTE | 2023-03-31 09:32 | WPDANESEPPF ---
Anes - Initial Pre Proc Eval Procedure: Operation Date: 03/31/23 12:00 Proposed Procedures p Excisional Biopsy Right Posterior Shoulder Mass - Meli Onofre MD Date/Time: 03/31/23 09:32 Surgeon: Meli Onofre MD Pre Op Diagnosis: right posterior shoulder mass Patient Data Age: 73 Gender: F Height: 1.5 m Weight: 81.81 kg Allergies Allergy/AdvReac Type Severity Reaction Status Date / Time Sulfa (Sulfonamide Allergy Intermediate Hives Verified 03/31/23 10:31 Antibiotics) Home Medications Medication Instructions Recorded Confirmed Type carboxymethyl 0.5 %-glycerin 1 1 drop ophthalmic (eye) Q2-4H PRN 08/28/19 03/31/23 History %-polysorb 80 0.5 %-PF eye Dry Eye(S) dropperette (Refresh Optive Sina-3 (PF)) cholecalciferol (vitamin D3) 125 125 mcg PO DAILY 11/29/20 03/31/23 History mcg (5,000 unit) capsule cyanocobalamin (vitamin B-12) 500 500 mcg PO DAILY 01/18/23 03/31/23 History mcg tablet,extended release multivitamin with iron (Daily 1 tablet PO DAILY 01/18/23 03/31/23 History Multiple Vitamins with Iron tablet) telmisartan 80 mg tablet 80 mg PO QAM 01/18/23 03/31/23 History apixaban 5 mg tablet (Eliquis) 5 mg PO BID #60 tabs 01/29/23 03/31/23 Rx bisoprolol 10 1 tablet PO QAM #90 tabs 02/09/23 03/31/23 Rx mg-hydrochlorothiazide 6.25 mg tablet felodipine 5 mg tablet,extended 5 mg PO QAM #90 tabs 02/09/23 03/31/23 Rx release 24 hr Patient hx anesthesia problems: none Family hx anesthesia problems: none Results Review: All pre-operative results and documents have been reviewed as part of the pre-operative evaluation. [facility] Past Medical History Medical History (Updated 03/31/23 @ 09:33 by Foster Alejandro DO) Atrial fibrillation Hyperlipidemia Hypertension Surgical History Surgical History (Updated 03/31/23 @ 09:33 by Foster Alejandro DO) History of tubal ligation Family History Family History Sibling Hypertension Patient's brother is Father Acute myocardial infarction, Onset Age: 67 Patient's father is Social History Social History Smoking status: Never smoker Second hand tobacco smoke exposure: No Alcohol intake: current Drinks per week: 1 Substance use: never Substance use type: does not use Lack of Transportation: No Lack of Food: Never True Current Housing: I Have Housing Concerned About Future Housing: No Difficulty Paying Gas/Electric Bills: No Difficulty Paying for Meds: No Currently Unemployed: No Education: High School Diploma/GED Difficulty w/ Childcare or Family Care: No Living arrangements: alone Spiritual care concerns: No Anes - Eval Final PreProcedure Day of Procedure 03/31/23 09:32 Patient weight: obese Heart: regular rate and rhythm Lungs: clear to auscultation Airway: Mallampati scale class II Neurological: alert and oriented Last oral intake: >/= 8 hours ASA classification: III Emergent: no Anesthetic plan: proceed Anesthesia type and monitoring: general GIVS and standard monitoring Results Review: All pre-operative results and documents have been reviewed as part of the pre-operative evaluation. Informed Consent: The patient's anesthetic plan and its attendant risks and benefits were discussed with the patient/family/POA. Questions were solicited and answers provided to the satisfaction of the patient/family/POA.
[2023-03-31 10:27] VITALS: BP 127/79; PULSE 78; RESP 20; TEMP 36.3; O2SAT 99
[2023-03-31] MEDS: LACTATED RINGERS 1,000 ML 30 ML IV CONT (11:00)
--- NOTE | 2023-03-31 11:46 | PM.IMHP ---
H&P: HPI History of Present Illness Date/Time: 03/31/23 11:46 Chief Complaint: shoulder mass Narrative: Smitha presents to the hospital at the request of Dr. Magana for evaluation of an enlarging cyst on right shoulder that she has had for over 10 years. Patient reports that the cyst has gotten larger over time and has not had any drainage or issues. She was able to express some drainage out of cyst about 10 years ago when messing with it but nothing since then. Review of Systems Review of Systems: All systems reviewed & are unremarkable except as noted in HPI and below PMFSH Past Medical History Medical History Atrial fibrillation Hyperlipidemia Hypertension Surgical History Surgical History History of tubal ligation Family History Family History Sibling Hypertension Patient's brother is Father Acute myocardial infarction, Onset Age: 67 Patient's father is Social History Social History Smoking status: Never smoker Second hand tobacco smoke exposure: No Alcohol intake: current Drinks per week: 1 Substance use: never Substance use type: does not use Lack of Transportation: No Lack of Food: Never True Current Housing: I Have Housing Concerned About Future Housing: No Difficulty Paying Gas/Electric Bills: No Difficulty Paying for Meds: No Currently Unemployed: No Education: High School Diploma/GED Difficulty w/ Childcare or Family Care: No Living arrangements: alone Spiritual care concerns: No Meds Home Medications and Allergies Home Medications Medication Instructions Recorded Confirmed Type carboxymethyl 0.5 %-glycerin 1 1 drop ophthalmic (eye) Q2-4H PRN 08/28/19 03/31/23 History %-polysorb 80 0.5 %-PF eye Dry Eye(S) dropperette (Refresh Optive Sina-3 (PF)) cholecalciferol (vitamin D3) 125 125 mcg PO DAILY 11/29/20 03/31/23 History mcg (5,000 unit) capsule cyanocobalamin (vitamin B-12) 500 500 mcg PO DAILY 01/18/23 03/31/23 History mcg tablet,extended release multivitamin with iron (Daily 1 tablet PO DAILY 01/18/23 03/31/23 History Multiple Vitamins with Iron tablet) telmisartan 80 mg tablet 80 mg PO QAM 01/18/23 03/31/23 History apixaban 5 mg tablet (Eliquis) 5 mg PO BID #60 tabs 01/29/23 03/31/23 Rx bisoprolol 10 1 tablet PO QAM #90 tabs 02/09/23 03/31/23 Rx mg-hydrochlorothiazide 6.25 mg tablet felodipine 5 mg tablet,extended 5 mg PO QAM #90 tabs 02/09/23 03/31/23 Rx release 24 hr Allergies Allergy/AdvReac Type Severity Reaction Status Date / Time Sulfa (Sulfonamide Allergy Intermediate Hives Verified 03/31/23 10:31 Antibiotics) Vital Signs Vital Signs - 24 hr 03/31/23 10:27 Temperature 36.3 C L Pulse Rate 78 Respiratory Rate 20 Blood Pressure 127/79 Pulse Oximetry 99 Oxygen Delivery Room Air Exam Const: General: cooperative, comfortable and no acute distress Resp: Auscultation: clear to auscultation bilaterally Cardio: Rate: regular rate Rhythm: regular rhythm GI: Inspection: normal to inspection Skin: Other: R posterior shoulder mass Assessment and Plan Assessment and plan (1) Shoulder mass: Code(s): R22.30 - Localized swelling, mass and lump, unspecified upper limb Status: Acute Assessment and Plan: will setup for excisional bx
--- NOTE | 2023-03-31 11:50 | WPDHPUPDATE1 ---
History and Physical Update Update Date/Time: 03/31/23 11:50 History and Physical has been reviewed, including an updated exam of the patient. There are NO changes in the patient's condition. Risks, benefits, and alternatives have been discussed and questions answered. Patient agrees to proceed with procedure.
[2023-03-31] MEDS: ceFAZolin 2 GM/D5W 50 ML 2 GM/50 ML BAG IVPB (12:25)
[2023-03-31 13:12] VITALS: BP 132/67; PULSE 73; RESP 16; O2SAT 96
[2023-03-31 13:15] VITALS: BP 103/63; PULSE 83; RESP 15
--- NOTE | 2023-03-31 13:18 | W.PM.PROC2 ---
Procedure Note - Detailed Date of Procedure 03/31/23 Pre-op Diagnosis right posterior shoulder mass measuring 8x6 cm Post-op Diagnosis Other ( sebaceous cyst) Procedure Performed Excisional biopsy right posterior shoulder mass measuring 8 x 6 cm, sebaceous cyst Surgeon Meli Onofre MD Anesthesia MAC and Local Indications 73-year-old female presenting to the hospital with a right large posterior shoulder mass. The patient reports the mass has slowly grown in size over the last 10 years or so. The patient reports initial drainage years ago, however no drainage in many years. The patient does report some tenderness with pressure, palpation. Findings Large right posterior shoulder sebaceous cyst Description of Procedure The patient was taken to the operating room and placed in the lateral position. After adequate induction of MAC anesthesia, the patient was prepped and draped the normal sterile fashion. A time-out was then done to verify the patient's identity, as well as the procedure being performed. I began by localizing the area and around this mass in the right posterior shoulder. The mass measured approximately 8 x 6 cm. A incision was made over the mass and immediately the cyst was encountered in the subcutaneous tissue. Using careful dissection, I the overlying dermis off the sebaceous cyst. I then used blunt dissection with the hemostat to bluntly dissect around this large cyst. I also used the electric cautery to aid with dissection. During the dissection, I did get into the cyst which was significant for some sebaceous material. This cyst was excised in full and will be sent to pathology for further review. I then copiously irrigated the cavity and further local anesthetic was placed. I then closed the subcutaneous tissue with 3-0 Vicryl suture. The skin was closed with 4-0 Monocryl subcuticular suture. The patient tolerated the procedure well was alert, awake postoperatively. She will be transferred to the recovery room in stable condition. Estimated Blood Loss 5 Drains No Packing No Pathology Yes Complications No immediate complications Condition Stable Disposition PACU [facility] Billing Surgery - Charge Forward: Surgery Billing
[2023-03-31 13:30] VITALS: BP 106/45; PULSE 76; RESP 16
[2023-03-31 13:45] VITALS: BP 118/62; PULSE 69; RESP 14
== END 2023-03-31 14:03 | disposition home or self-care (01) ==
PROVIDERS: PCP Internal Medicine; Visit Provider Surgery
PROC: (CPT 11406; principal; 2023-03-31 12:00)
DX: L72.0 Epidermal cyst (principal); I48.91 Unspecified atrial fibrillation; I10 Essential (primary) hypertension; E78.5 Hyperlipidemia, unspecified; Z79.01 Long term (current) use of anticoagulants; E66.9 Obesity, unspecified; Z68.35 Body mass index [BMI] 35.0-35.9, adult
CPT/HCPCS: 11406; 12034; 88304; J0690; J1100; J2370; J2405; J2704; J3010; J7120

== ENCOUNTER 2023-12-22 12:38 | Emergency (ER) | payer MEDICARE, OTHER, SELFPAY ==
--- NOTE | ~2023-12-22 | XR_ITS ---
EXAMINATION: XR hand RT min 3V DATE: 12/22/2023 12:59 INDICATION: Right hand pain and swelling post fall TECHNIQUE: Posteroanterior, oblique and lateral views of the right hand were obtained. COMPARISON: None. FINDINGS: No fracture. Severe osteoarthritis at the first carpometacarpal joint with secondary mild dorsal subl uxation of the base of the first metacarpal with respect to the trapezium with prominent associated h ypertrophic changes. Additional moderate osteoarthritis at the third metacarpophalangeal joint with m ild palmar subluxation of the proximal phalanx. Additional moderate osteoarthritis at the first inter phalangeal and second fifth distal interphalangeal and fourth proximal interphalangeal joints and mil d osteoarthritis at the wrist, midcarpal, triscaphe, first metacarpophalangeal and remaining interpha langeal joints. Soft tissues are unremarkable. IMPRESSION: 1. Moderate to severe polyarticular osteoarthritis at the right hand as detailed above. No acute osse ous abnormality. Reviewed, dictated and finalized at location A. IMPRESSION: 1. Moderate to severe polyarticular osteoarthritis at the right hand as detaile d above. No acute osseous abnormality.
[2023-12-22 12:48] VITALS: BP 128/70; PULSE 83; RESP 16; TEMP 36.2; O2SAT 99
--- NOTE | 2023-12-22 13:04 | ED.GENADULT ---
HPI - General Adult General Chief complaint: Extremity Injury, Upper Stated complaint: R HAND INJURY Time Seen by Provider: 12/22/23 13:00 Source: patient, RN notes reviewed and old records reviewed Mode of arrival: ambulatory Limitations: no limitations History of Present Illness HPI narrative: 73 year old female presents to [facility] care with complaints of injury to her right hand which occurred yesterday. Patient reports that she was bent over tieing her shoe and she lost her balance and fell onto her buttock with her right hand outstretched in the parking lot at [facility]. Patient reports no pain to her right buttock or any bruising is concerned though of right hand due to swelling and some tenderness of dorsal hand. Patient is able to move all fingers of right hand,is able to make tight fist, is able to pronate and supinate the wrist and move wrist side to side.Patient does have some bruising to the dorsal aspect of her right hand. Patient reports that she has been applying ice to her right hand but has not taken any OTC pain medication. Patient denies any other injuries and did not hit her head when she fell. MD complaint: right hand pain and swelling Onset (ago): day(s) (1) Location: right and upper extremity (hand) Severity scale (1-10): 1 Treatments prior to arrival: cold therapy Related Data Home Medications Medication Instructions Recorded Confirmed carboxymethyl 0.5 %-glycerin 1 1 drop ophthalmic (eye) Q2-4H PRN 08/28/19 12/22/23 %-polysorb 80 0.5 %-PF eye Dry Eye(S) dropperette (Refresh Optive Sina-3 (PF)) cholecalciferol (vitamin D3) 125 125 mcg PO DAILY 11/29/20 12/22/23 mcg (5,000 unit) capsule cyanocobalamin (vitamin B-12) 500 500 mcg PO DAILY 01/18/23 12/22/23 mcg tablet,extended release multivitamin with iron (Daily 1 tablet PO DAILY 01/18/23 12/22/23 Multiple Vitamins with Iron tablet) Allergies Allergy/AdvReac Type Severity Reaction Status Date / Time Sulfa (Sulfonamide Allergy Intermediate Hives Verified 12/22/23 13:10 Antibiotics) Review of Systems Review of Systems: CONSTITUTIONAL: Denies fever, chills, or sweats. EYES: Denies visual changes, redness, or discharge. ENT: Denies rhinorrhea, congestion, sore throat, or otalgia. CARDIOVASCULAR: Denies chest pain, palpitations, or edema. RESPIRATORY: Denies cough or dyspnea. GASTROINTESTINAL: Denies abdominal pain, nausea, vomiting, or diarrhea. GENITOURINARY: Denies dysuria or hematuria. SKIN: Denies rash or itching. MUSCULOSKELETAL: Denies back pain,positive for right hand discomfort and swelling, or myalgia. NEUROLOGIC: Denies headache, numbness, or weakness. PSYCHIATRIC: Denies anxiety or depression. All systems reviewed & are unremarkable except as noted in HPI and below PMFSH Past Medical History Medical History Atrial fibrillation Hyperlipidemia Hypertension Surgical History Surgical History H/O arthroscopy of right knee History of cataract surgery History of total left knee replacement History of tubal ligation Hx of local excision of skin lesion Excisional biopsy right posterior shoulder mass measuring 8 x 6 cm, sebaceous cyst by Dr. Onofre on 03/31/23. Family History Family History Sibling Hypertension Patient's brother is Father Acute myocardial infarction, Onset Age: 67 Patient's father is Social History Social History Smoking status: Never smoker Second hand tobacco smoke exposure: No Alcohol intake: current Drinks per week: 1 Substance use: never Substance use type: does not use Lack of Transportation: No Lack of Food: Never True Current Housing: I Have Housing Concerned About Future Housing: No Difficulty Paying Gas/Electr
== END 2023-12-22 13:35 | disposition home or self-care (01) ==
PROVIDERS: Emergency Provider Registered Nurse; PCP Internal Medicine
DX: S60.221A Contusion of right hand, initial encounter (principal); W19.XXXA Unspecified fall, initial encounter; I48.91 Unspecified atrial fibrillation; Z96.652 Presence of left artificial knee joint
CPT/HCPCS: 73130; 99213; G0463

== ENCOUNTER 2024-01-18 09:53 | Outpatient (CLI) | payer MEDICARE, OTHER, SELFPAY ==
[2024-01-18 10:34] LABS: Basophils Percent Auto 0.5 % (0.2-1.2); Eosinophils Absolute Auto 0.1 K/mm3 (0-0.3); Eosinophils Percent Auto 1.4 % (0-4.4); Hematocrit 44.4 % (37.0-47.0); Hemoglobin 14.5 g/dL (12.0-15.0); Immature Granulocyte Absolute 0.03 K/mm3 (0.00-0.031); Immature Granulocyte Percent A 0.5 % (0-0.5); Lymphocytes Absolute Auto 2.03 K/mm3 (0.9-3.2); Lymphocytes Percent Auto 31.6 % (18.3-44.2); Mean Corpuscular HGB Conc 32.7 g/dl (32-36); Mean Corpuscular Hemoglobin 29.5 pg (26-34); Mean Corpuscular Volume 90.2 fl (80-100); Mean Platelet Volume 9.2 fl (7.4-10.4); Monocytes Absolute Auto 0.4 K/mm3 (0.1-0.6); Monocytes Percent Auto 5.9 % (2.6-8.5); Neutrophils Absolute Auto 3.9 K/mm3 (1.3-6.7); Neutrophils Percent Auto 60.1 % (45.5-73.1); Platelet Count Result 186 k/mm3 (150-375); Red Blood Count 4.92 M/mm3 (4.2-5.4); Red Cell Distribution Width 12.9 % (11.5-14.5); White Blood Count 6.4 K/mm3 (4.5-10.0)
[2024-01-18 10:56] LABS: Alanine Aminotransferase 22 U/L (6-35); Albumin Level 4.4 g/dL (3.5-5.1); Alkaline Phosphatase 93 U/L (38-126); Anion Gap 7 mmol/L (4-12); Aspartate Amino Transferase 28 U/L (14-36); Blood Urea Nitrogen 16 mg/dL (7-17); Calcium 9.7 mg/dL (8.4-10.2); Carbon Dioxide 26 mmol/L (22-30); Chloride 108 mmol/L (98-107); Cholesterol 186 mg/dL (0-200); Estimated Glomerular Filt Rate > 60; Glucose 143 mg/dL (65-110); HDL Direct 38 mg/dL; Potassium 3.8 mmol/L (3.4-5.0); Sodium 141 mmol/L (137-145); Triglycerides 269 mg/dL (<150)
[2024-01-18 11:07] LABS: LDL Cholesterol Direct 109 mg/dL
[2024-01-18 11:44] LABS: Vitamin D 25 Hydroxy 39.8 ng/mL
[2024-01-18 13:00] LABS: Hemoglobin A1C 5.9 % (<5.7)
== END 2024-01-18 09:54 | disposition home or self-care (01) ==
LOC: ANHLAB 09:57
PROVIDERS: Physician Assistant; PCP Internal Medicine; Visit Provider Internal Medicine
DX: E53.8 Deficiency of other specified B group vitamins (principal); D75.1 Secondary polycythemia; E55.9 Vitamin D deficiency, unspecified; E78.5 Hyperlipidemia, unspecified; I10 Essential (primary) hypertension; I48.91 Unspecified atrial fibrillation; R73.9 Hyperglycemia, unspecified
CPT/HCPCS: 36415; 80053; 80061; 82306; 82607; 83036; 84443; 85025

== ENCOUNTER 2024-03-07 08:52 | Outpatient (CLI) | payer MEDICARE, OTHER, SELFPAY ==
--- NOTE | ~2024-03-07 | MM_ITS ---
EXAMINATION: MM screening angela BI w nay HISTORY: Screening TECHNIQUE: Craniocaudal and mediolateral oblique 3-D tomosynthesis images were obtained and synthetic 2-D images were generated. CAD analysis was submitted and interpreted. COMPARISON: Comparison to multiple prior studies sequentially, with oldest reviewed study dated 07/04. BREAST PARENCHYMAL COMPOSITION: There are scattered areas of fibroglandular density. FINDINGS: There is no evidence of suspicious mass, calcification, or architectural distortion to sugg est malignancy in either breast. There has been no suspicious interval change. IMPRESSION: 1. No mammographic evidence of malignancy. 2. Recommend routine screening mammography in one year. BI-RADS Category 1: Negative Reviewed, dictated and finalized at location B.
== END 2024-03-07 08:53 | disposition home or self-care (01) ==
PROVIDERS: PCP Internal Medicine; Visit Provider Internal Medicine
DX: Z12.31 Encounter for screening mammogram for malignant neoplasm of breast (principal)
CPT/HCPCS: 77063; 77067

== ENCOUNTER 2024-10-17 09:31 | Outpatient (CLI) | payer MEDICARE, OTHER, SELFPAY ==
[2024-10-17 11:05] LABS: Alanine Aminotransferase 22 U/L (6-35); Albumin Level 4.1 g/dL (3.5-5.1); Alkaline Phosphatase 106 U/L (38-126); Anion Gap 8 mmol/L (4-12); Aspartate Amino Transferase 26 U/L (14-36); Bilirubin,Total 1.2 mg/dL (0.2-1.3); Blood Urea Nitrogen 21 mg/dL (7-17); Calcium 9.6 mg/dL (8.4-10.2); Carbon Dioxide 29 mmol/L (22-30); Chloride 102 mmol/L (98-107); Cholesterol 215 mg/dL (0-200); Estimated Glomerular Filt Rate > 60; Glucose 181 mg/dL (65-110); HDL Direct 35 mg/dL; Potassium 4.1 mmol/L (3.4-5.0); Sodium 139 mmol/L (137-145); Triglycerides 263 mg/dL (<150)
[2024-10-17 11:16] LABS: LDL Cholesterol Direct 124 mg/dL
[2024-10-17 11:19] LABS: Vitamin D 25 Hydroxy 61.1 ng/mL
== END 2024-10-17 09:32 | disposition home or self-care (01) ==
LOC: ANHLAB 09:33
PROVIDERS: PCP Internal Medicine; Visit Provider Internal Medicine
DX: E78.5 Hyperlipidemia, unspecified (principal); I10 Essential (primary) hypertension; R73.9 Hyperglycemia, unspecified; E55.9 Vitamin D deficiency, unspecified
CPT/HCPCS: 36415; 80053; 80061; 82306; 83036

== ENCOUNTER 2024-11-27 08:35 | Outpatient (CLI) | payer MEDICARE, OTHER, SELFPAY ==
--- OUTSIDE RECORDS SUMMARY | 2024-11-27 08:55 | XMS_ITS | Data Portability ---
Author Organization [place] [facility] [employer] [facility] [employer], Main Office Address [address] [place] [address] Care Team Providers Care Thrasher Feeder Name Role Phone MIGUELINA MOISE Primary Care Provider [phone] MIGUELINA MOISE Referring Provider [phone] Assessment Encounter Date Assessment Date Assessment LastModified by Organization Details LastModified Time 06/14/2024 06/14/2024 74-year-old patient presents today after right shoulder dislocation when she was walking a dog and the dog pulled the leash on 06/11/24. She presented to the emergency room where the shoulder was relocated. Today she denies any issues with the shoulder, no pain, no restrictions in range of motion. She has not been taking any medications for pain. She denies any issues with the shoulder in the past. Review of systems per patient questionnaire Imaging: X-rays reviewed were from post reduction in the emergency room. No acute bony abnormality or fracture. alignment maintained. Physical exam: No tenderness with palpitation around the shoulder. Range of motion 150/ 40/ Lower lumbar. 5/5 rotator cuff strength. Negative Neil's, sensation intact throughout. She states she is doing fine after her injury. We discussed that if anything changes she can contact us and we will see her back. We discussed that after 1 dislocation she is at risk for future dislocations. [email or web address] Not available 06/14/2024 12:26:58 Plan of Treatment Reminders Order Date Submit Date Provider Last Modified By Organization Details Last Modified Time Details Appointments None record ed. Lab None record ed. Referral None record ed. Procedures None record ed. Surgeries None record ed. Imaging None record ed. Medication Orders None record ed. Patient TargetsNo targets recorded. Patient InstructionsNo instructions recorded. Reason for Referral None Reported. Results Created Date Observation Date Name Description Value Unit Range Abnormal Flag Note LastModifiedBy Organization Detail LastModifiedTime 06/12/20 24 06/11/2024 XR, shoul rizwana, 1 view No observ ation record ed. [email or web address] Not Available 06/2024 10:42:17 Result Notes None recorded. Problems Name Problem SNOMED Code Status Onset Date Resolution Date Notes Provider Name and Address Organization Details Recorded Time Osteoarthr itis 986536445 Active Not Available [employer] 3 13:11:34 Pain of right shoulder joint 1166068790259 9100 Active 2023 [facility] [email or web address] [facility] 4 12:00:27 Problem Notes None recorded. Procedures Surgical History Date Name Laterality Status Provider Name and Address Organization Details Recorded Time Knee Replacement completed Renetta arcos Stephane [facility] [employer] [facility] 06/14/2024 11:56:47 Shoulder [address]Y Garcia [facility] 06/14/2024 11:57:19 Cataract Surgery completed Renetta arcos [facility] [employer] [facility] 06/14/2024 11:57:53 repair of meniscus completed Renetta Alexander Stephane [facility] [employer] [facility] 06/14/2024 11:59:42 Imaging Results Imaging Date Name Status LastModified by Organiz ation Details LastModified Time 06/11/2024 XR, shoulder, 1 view completed [email or web address] Information not available 06/12/2024 10:42:17 Procedure Notes None recorded. Medical Equipment None Reported. Allergies Allergen ID Allergen Name Allergen Category Reaction Reaction Severity Criticality Documentation Date Start Date Code Code System Note Provider Name and Address Organization Details Recorded Time 48184 Substance with sulfonami de structure and antibacte rial mechanism of action (substanc e) medicatio n rash Not available Not available 06/14/2024 [id number] [facility] 4 11:54:14 Medications Name Sig Start Date Stop Date Status Note LastModified by Organization Details LastModified Time bisoprolol 10 mg-hydrochlor othiazide 6.25 mg tablet TAKE 1 TABLET BY MOUTH EVERY MORNING active Not Available Not Available No t Available felodipine ER 5 mg tablet,extend ed release 24 hr TAKE 1 TABLET BY MOUTH EVERY MORNING active Not Available Not Available No t Available telmisartan 80 mg tablet TAKE 1 TABLET BY MOUTH EVERY DAY IN THE MORNING active Not Available Not Available No t Available Vitamin D3 active Not Available Not Av ailable Not Available B12 1000 mcg active Not Available Not Avai lable Not Available Eliquis 5 mg tablet TAKE 1 TABLET BY MOUTH TWICE A DAY active Not Available Not Available No t Available Vitals Date Recorded Body height Body mass index (BMI) Body weight Provider Name and Address Organization Details Last Updated DateTime 06/14/2024 147.32 cm 38.7 kg/m2 39987.59 g CHUCKY Garcia [facility] [employer] [facility] [employer] 06/14/2024 11:53:44 Social History Question Answer Notes LastModified by Organizat ion Details LastModified Time Tobacco Smoking Status Never Smoker CHUCKY Garcia [facility] 06/14/2024 11:56:26 What Is Your Level Of Alcohol Consumption? Occasional Information not available 06/14/2024 What Was The Date Of Your Most Recent Tobacco Screening? 06/14/2024 [email or web address] Information not available 06/14/2024 Sex: Unknown Functional Status None recorded. Mental Status None recorded. Family History Relationship Description Onset Age of this Age Resolved Age Notes LastModified by Organization Details LastModified Time Father Heart disease [email or web address] Not available 2023 11:55:45 Father Hypertensive disorder [email or web address] Not available 2023 11:55:58 Paternal Grandmother Diabetes mellitus [email or web address] Not available 2023 11:56:11 Medical History No medical history recorded. Gynecological HistoryNo gynecological history recorded. Obstetrics History GPAL:G 0 P 0 0 0 0 Past Encounters Encounter ID Performer Location Encounter Start Date Encounter Closed Date Diagnosis/Indication Diagnosis SNOMED-CT Code Diagnosis ICD10 Code Diagnosis Note [id number] Charu Ramirez NP [facility] [address] [place] [address] 06/14/2024 11:10:06 06/14/2024 12:14:41 Pain of right shoulder joint [id number] M25.511 Health Concerns Section Related Observation LastModified by Organization Detai ls LastModified Time None Recorded Concern Status LastModified by Organization Details LastModified Time None Recorded Advance Directives Directive None Recorded Payers Encounter Date Sequence Insurance Name Policy Number Policy Nunez Covered Member ID Nunez Member ID Guarantor Name 06/14/2024 1 [place] Smitha Schmidt [id number] Smitha Schmidt 06/14/2024 2 [facility] (MEDICARE SUPPLEMENT) Smitha Schmidt [id number] Smitha Schmidt OBGyn Episode No OBEpisode recorded.
--- OUTSIDE RECORDS SUMMARY | 2024-11-27 08:55 | XMS_ITS | Clinical Summary ---
Author Organization [facility] Address [address], [address] [address] Phone Care Team Providers Care Golf Starter And Ranger Name Role Phone Paulo Magana DO Primary Care Provider [phone] LibiaMak DO Unavailable [phone] Medications polyethylene glycol (MIRALAX) Powder Mix the entire bottle with 64 oz of a clear liquid. Use as directed by the office for colonoscopy prep. 255 g 0 6 Active bisoprolol-hydr oCHLOROthiazide (ZIAC) 10-6.25 MG Tablet Take 1 Tab by mouth daily. Active Valsartan 320 MG Tablet Take 320 mg by mouth daily. Active Immunizations Immunization Administration Dates Next Due Covid-19, Mrna, Lnp-s, Pf, 30 Mcg/0.3 Ml Dose (Boris pavon) 01/14/2021 Family History Medical History Relation Name Comments Hypertension Brother Cataract Father Heart Disease Father Hypertension Father Hypertension Mother Hypertension Sister Relation Name Status Comments Brother Father Mother Sister Social History Tobacco Use Types Packs/Day Years Used Date Smoking Tobacco: Never Alcohol Use Standard Drinks/Week Comments Yes 1 (1 standard drink = 0.6 oz pur e alcohol) Comments Unknown Sex and Gender Information Value Date Recorded Sex Assigned at Not on file Legal Sex Female 11:35 PM CDT Gender Identity Not on file Sexual Orientation Not on file Plan of Treatment Health Maintenance Due Date Last Done Comments DEXA Bone Density 1950 Hepatitis C Virus (HCV) Screening 1950 TdaP Immunization 1950 Cologuard 1999 Immunochemical Fecal Occult Blood 1999 Zoster Immunization (1 of 2) 1999 Pneumococcal Immunization (5 0+ years) (2 of 2 - PPSV23) 07/14/2020 07/14/2019 Respiratory Syncytial Virus (RSV) Immunization (Adult) (1 - 1-dose 75+ series) 01/31/2024 Influenza Immunization (#1) 2024 09/0 12/2019, 07/14/2019, 06/26/2017 SARS-COV-2 Immunization ( season) 2024 08/24/2021, 02/04/2021, 01/14/2021 Colonoscopy 06/04/2026 06/04/2016 Colorectal Cancer Screening 06/04/2026 06/04/2016 Pneumococcal Immunization Combined Discontinued 07/14/2019 Hepatitis B Immunization Aged Out No longer eligible based on patient's age to complete this topic Meningococcal Immunization (ACWY) Aged Out No longer eligible based on patient's age to complete this topic Rotavirus Immunization Aged Out No lo nger eligible based on patient's age to complete this topic Procedures Procedure Name Priority Date/Time Associated Diagnosis Comments COLONOSCOPY Routine 06/04/2016 from Last 3 Months or Most Recently Relevant to Health Maintenance Results * COLONOSCOPY (06/04/2016) Paulo Magana DO PROCEDURE/MINOR SURGICAL OR DERABLES Final Result from Last 3 Months or Most Recently Relevant to Health Maintenance Insurance MEDICARE Care Teams Golf Starter And Ranger Relationship Specialty Start Date End Date Paulo Magana DO [address] [place] [address] PCP - General Internal Medicine 06/05/16 Mak Reza DO [address] [place] [address] Gastroenterology 06/05/16
[2024-11-27 09:07] LABS: Alanine Aminotransferase 28 U/L (6-35); Albumin Level 4.1 g/dL (3.5-5.1); Alkaline Phosphatase 100 U/L (38-126); Aspartate Amino Transferase 31 U/L (14-36); Bilirubin,Total 1.2 mg/dL (0.2-1.3); Cholesterol 100 mg/dL (0-200); HDL Direct 37 mg/dL; Triglycerides 139 mg/dL (<150)
[2024-11-27 09:20] LABS: LDL Cholesterol Direct 37 mg/dL
== END 2024-11-27 08:36 | disposition home or self-care (01) ==
PROVIDERS: PCP Internal Medicine; Visit Provider Internal Medicine
DX: E78.5 Hyperlipidemia, unspecified (principal); Z51.81 Encounter for therapeutic drug level monitoring; Z79.899 Other long term (current) drug therapy
CPT/HCPCS: 36415; 80061; 80076

== ENCOUNTER 2025-04-18 15:19 | Outpatient (CLI) | payer MEDICARE, OTHER, SELFPAY ==
--- NOTE | ~2025-04-18 | MM_ITS ---
EXAMINATION: MM screening angela BI w nay HISTORY: Screening TECHNIQUE: Craniocaudal and mediolateral oblique 3-D tomosynthesis images were obtained and synthetic 2-D images were generated. CAD analysis was submitted and interpreted. COMPARISON: Comparison to multiple prior studies sequentially, with oldest reviewed study dated 08/05. BREAST PARENCHYMAL COMPOSITION: Not dense: There are scattered areas of fibroglandular density. FINDINGS: There is no evidence of suspicious mass, calcification, or architectural distortion to sugg est malignancy in either breast. There has been no suspicious interval change. IMPRESSION: 1. No mammographic evidence of malignancy. 2. Recommend routine screening mammography in one year. BI-RADS Category 1: Negative Reviewed, dictated and finalized at location B.
--- OUTSIDE RECORDS SUMMARY | 2025-04-18 15:23 | XMS_ITS | Clinical Summary ---
Author Organization [facility] Address [address], [address] [address] Phone Care Team Providers Care Assembler Carbon Brushes Name Role Phone Paulo Magana DO Primary Care Provider LibiaMak DO Unavailable Medications polyethylene glycol (MIRALAX) Powder Mix the [...] Health Maintenance Due Date Last Done Comments Hepatitis C Virus (HCV) Screening 1950 TdaP Immunization 1950 Zoster Immunization (1 of 2) 1999 Pneumococcal Immunization (5 0+ years) (2 of 2 - PPSV23) 07/14/2020 07/14/2019 Respiratory Syncytial Virus (RSV) Immunization (Adult) (1 - 1-dose 75+ series) 01/31/2024 SARS-COV-2 Immunization (4 - season) 2024 08/24/2021, 02/04/2021, 01/14/2021 Influenza Immunization (#1) 2025 09/0 12/2019, 07/14/2019, 06/26/2017 Colonoscopy Discontinued 06/04/2016 Colorectal Cancer Screening Discontinued Pneumococcal Immunization Combined Discontinued 07/14/2019 Cologuard Discontinued Hepatitis B Immunization Aged Out No longer eligible based on patient's age to complete this topic Human Papillomavirus (HPV) Immunization Aged Out No longer eligible based on patient's age to complete this topic Immunochemical Fecal Occult Blood Discontinued Meningococcal Immunization (ACWY) Aged Out No longer [...] to Health Maintenance Insurance MEDICARE Care Teams Assembler Carbon Brushes Relationship Specialty Start Date End Date Paulo Magana DO [address] [place], [place] [phone] PCP - General Internal Medicine 06/05/16 Mak Reza DO [address] [place] [address] Gastroenterology 06/05/16
--- OUTSIDE RECORDS SUMMARY | 2025-04-18 15:23 | XMS_ITS | Continuity of Care Document ---
Author Organization [facility] Address [address] [place] [address] [address] [place] [address] Phone Care Team Providers Care Line Rider Name Role Phone Marley Tomas Unavailable Unavailable Procedures Procedure Date Eye Exam & Treatment Refraction Eye Exam & Treatment Advance Directives Directive Yes / No Effective Date File Name No Information Encounters Encounter Description Practice Location Reason(s) For Visit Diagnoses Date Provider Providers Copied on Encounter [facility], [address] [place] [address] [address], [place], [place], [id number], tel:[phone] [facility] No Information 3-[address] Genoveva Patton [address] , [address], [place], [place], [facility], . tel:[phone] [facility], [address] [place] [address] [address], [place], [place], [id number], tel:[phone] [facility] No Information 7-200 7 Genoveva Patton [address] , [address], [place], [place], [facility], . tel:[phone] Family History Family Member Type Diagnosis Age At Onset No Information Payers Payer name Insurance type Covered constitution party ID Authordka hodadayne(s) [employer] Vision Plan CI [id number] 2 Social History Type Description Quantity Date Captured Comments Sex Female Smoking Status No Information Chief Complaint And Reason For Visit No Information Reason For Referral Reason For Referral No Information History Of Present Illness Encounter Date Complaint History Of Prese nt Illness No Information Functional Status Date Functional Assessmen t No Information Instructions Date Instruction Additional Infor mation No Information Assessments Type Assessment Date No Information Patient Care Teams Name Effective Dates (start - stop) Status Members No Information
--- OUTSIDE RECORDS SUMMARY | 2025-04-18 15:23 | XMS_ITS | Data Portability ---
Author Organization [place] - [facility] [employer], Main Office Address [address] [place] [address] Care Team Providers Care Education And Training Manager Name Role Phone MIGUELINA MOISE Primary Care Provider MIGUELINA MOISE Referring Provider [phone] Assessment Encounter Date Assessment Date Assessment LastModified [...] Address Organization Details Recorded Time Osteoarthr itis [id number] Active Not Available [employer] 3 13:11:34 Pain of right shoulder joint [id number] 9100 Active 2023 CHUCKY Garcia [facility] [email or web address] [facility] 12:00:27 Problem Notes None recorded. Procedures Surgical History Date Name Laterality Status Provider Name and Address Organization Details Recorded Time Knee Replacement completed Renetta arcos Stephane [facility] [email or web address] [facility] 06/14/2024 11:56:47 Shoulder completed CHUCKY Garcia [facility] [email or web address] [facility] 06/14/2024 11:57:19 Cataract Surgery completed Renetta arcos [facility] [employer] [facility] 06/14/2024 11:57:53 repair of meniscus completed CHUCKY Garcia [facility] [email or web address] [facility] 06/14/2024 11:59:42 Imaging Results None recorded. Procedure Notes None recorded. Medical Equipment None Reported. Allergies Allergen ID Allergen Name Allergen Category Reaction Reaction Severity Criticality Documentation Date Start Date Code Code System Note Provider Name and Address Organization Details Recorded Time 52715 Substance with sulfonami de structure and antibacte rial mechanism of action (substanc e) medicatio n rash Not available Not available 06/14/2024 [id number] SNOMED CHUCKY Garcia [facility] [email or web address] [facility] 11:54:14 Medications Name Sig Start Date Stop [...] Updated DateTime 06/14/2024 147.32 cm 38.7 kg/m2 97275.59 g CHUCKY Garcia [facility] [email or web address] [facility] 06/14/2024 11:53:44 Social History Question Answer Notes LastModified by [email or web address] Details LastModified Time Tobacco Smoking Status Never Smoker CHUCKY Garcia [facility] [email or web address] [facility] 06/14/2024 11:56:26 What Was The Date Of Your Most Recent Tobacco Screening? 06/14/2024 [email or web address] Information not available 06/14/2024 Sex: Unknown Functional Status Question Answer Note LastModified by [email or web address] Details LastModified Time What is your level of alcohol consumption? Occasional [email or web address] Information not available 06/14/2024 Mental Status None recorded. Family History Relationship Description Onset Age of this Age Resolved Age Notes LastModified by Organization Details LastModified Time Father Heart disease [email or web address] Not available 2023 11:55:45 Father Hypertensive disorder [email or web address] Not available 2023 11:55:58 Paternal Grandmother Diabetes mellitus Not available 2023 11:56:11 Medical History No medical history recorded. Gynecological HistoryNo gynecological history recorded. Obstetrics History GPAL:G 0 P 0 0 0 0 Past Encounters Encounter ID Performer Location Encounter Start Date Encounter Closed Date Diagnosis/Indication Diagnosis SNOMED-CT Code Diagnosis ICD10 Code Diagnosis Note [id number] Gonzalo Shepherd MD [facility] [address] [address] [place] [address] 06/14/2024 11:10:06 06/14/2024 12:14:41 Pain of right shoulder joint [id number] M25.511 Health Concerns Section Related Observation LastModified by Organization Detai ls LastModified Time None Recorded Concern Status LastModified by Organization Details LastModified Time None Recorded Advance Directives Directive None Recorded Payers Insurance Date Sequence Insurance Name Policy Number Policy Nunez Covered Member ID Nunez Member ID Guarantor Name 06/14/2024 1 [employer] (INDEMNITY) [id number] Smitha Martini Saligram [id number] Smitha Vini Saligram 02/05/2025 2 [employer] [place] (MEDICARE SUPPLEMENT) Smitha Vini Saligram [id number] Smitha Vini Saligram 10/06/2024 1 [place] Smitha Martini Saligram [id number] Smitha Martini Saligram OBGyn Episode No OBEpisode recorded.
== END 2025-04-18 15:20 | disposition home or self-care (01) ==
LOC: ANHIMG 15:21
PROVIDERS: PCP Internal Medicine; Visit Provider Internal Medicine
DX: Z12.31 Encounter for screening mammogram for malignant neoplasm of breast (principal)
CPT/HCPCS: 77063; 77067

== ENCOUNTER 2025-06-14 09:18 | Outpatient (CLI) | payer MEDICARE, OTHER, SELFPAY ==
--- OUTSIDE RECORDS SUMMARY | 2025-06-14 09:57 | XMS_ITS | Clinical Summary ---
Author Organization [facility] Address [address], [address] [address] Phone Care Team Providers Care Irrigation System Installer Name Role Phone Paulo Magana DO Primary Care Provider LibiaMak DO Unavailable [phone] Medications polyethylene glycol (MIRALAX) Powder Mix the [...] (5 0+ years) (2 of 2 - PCV20 or PCV21) 07/14/2020 07/14/2019 Respiratory Syncytial Virus (RSV) Immunization [...] to Health Maintenance Insurance MEDICARE Care Teams Irrigation System Installer Relationship Specialty Start Date End Date Paulo Magana DO [address] [place], [place] [phone] PCP - General Internal Medicine 06/05/16 Mak Reza DO [address] [place] [address] Gastroenterology 06/05/16
[2025-06-14 10:01] LABS: Hematocrit 43.4 % (37.0-47.0); Hemoglobin 14.0 g/dL (12.0-15.0); Immature Granulocyte Percent A 0.3 % (0-0.5); Lymphocytes Absolute Auto 1.94 K/mm3 (0.9-3.2); Mean Corpuscular HGB Conc 32.3 g/dl (32-36); Mean Corpuscular Hemoglobin 29.2 pg (26-34); Mean Corpuscular Volume 90.4 fl (80-100); Nucleated Red Blood Cells Absolute Auto 0.000 K/mm3 (0.0-0.012); Nucleated Red Blood Cells Perc 0.0 % (0.0-0.2); Platelet Count Result 185 k/mm3 (150-375); Red Blood Count 4.80 M/mm3 (4.2-5.4); White Blood Count 6.3 K/mm3 (4.5-10.0)
[2025-06-14 10:12] LABS: Hemoglobin A1C 6.3 % (<5.7)
[2025-06-14 10:16] LABS: Alanine Aminotransferase 23 U/L (6-35); Albumin Level 4.2 g/dL (3.5-5.1); Alkaline Phosphatase 78 U/L (38-126); Anion Gap 8 mmol/L (4-12); Aspartate Amino Transferase 27 U/L (14-36); Bilirubin,Total 1.0 mg/dL (0.2-1.3); Blood Urea Nitrogen 19 mg/dL (7-17); Calcium 9.4 mg/dL (8.4-10.2); Carbon Dioxide 25 mmol/L (22-30); Chloride 107 mmol/L (98-107); Cholesterol 131 mg/dL (0-200); Estimated Glomerular Filt Rate > 60; Glucose 152 mg/dL (65-110); HDL Direct 42 mg/dL; Potassium 3.6 mmol/L (3.4-5.0); Sodium 140 mmol/L (137-145); Total Protein 7.3 g/dL (6.3-8.2); Triglycerides 128 mg/dL (<150)
[2025-06-14 11:09] LABS: Vitamin B12 792.0 pg/mL (239-931)
[2025-06-14 11:28] LABS: MALB Creatinine Ratio 29.0 mg/g (0-30)
== END 2025-06-14 09:19 | disposition home or self-care (01) ==
PROVIDERS: PCP Internal Medicine; Visit Provider Internal Medicine
DX: E78.5 Hyperlipidemia, unspecified (principal); I10 Essential (primary) hypertension; E11.9 Type 2 diabetes mellitus without complications; E55.9 Vitamin D deficiency, unspecified; E53.8 Deficiency of other specified B group vitamins
CPT/HCPCS: 36415; 80053; 80061; 82043; 82306; 82607; 83036; 85025